=== PATIENT | male | born 2000 | race Two or more races ===

== ENCOUNTER 2022-07-14 00:20 | Emergency (ER) | payer OTHER ==
[~2022-07-14] VITALS: Ht 180.3 cm; Wt 108.9 kg
[2022-07-14] MEDS ORDERED: ZITHROMAX500 MG PO (00:33)
[2022-07-14] MEDS ORDERED: ORASEP SPRAY30 ML MM ×2 (03:52)
[2022-07-14] MEDS ORDERED: CEPHALEXIN500 MG PO (03:52)
[2022-07-14] MEDS ORDERED: MELOXICAM15 MG PO (03:52)
== END 2022-07-14 03:57 ==
LOC: ER 00:20
DX: J20.9 Acute bronchitis, unspecified (principal)

== ENCOUNTER 2023-08-15 11:55 | Emergency (ER) | payer OTHER ==
[~2023-08-15] VITALS: Ht 180.3 cm; Wt 108.9 kg
[~2023-08-15 11:55] MED LIST: CEPHALEXIN500 MG PO; MELOXICAM15 MG PO; ORASEP SPRAY30 ML MM; ZITHROMAX500 MG PO
[2023-08-15] MEDS ORDERED: CONCERTA27 MG (13:12)
[2023-08-15 16:00] LABS: HEMOGLOBIN 13.7 g/dL (13-16.00); MEAN CELL VOLUME 82.8 fL (80.0-100.00); MEAN CORPUSCULAR HEMOGLOBIN 29.8 pg (27.00-32.0); MEAN CORPUSCULAR HGB CONC 35.9 g/dl (32.0-36.0); PLATELET COUNT 261 K/uL (150-450); RED BLOOD COUNT 4.59 M/uL (4.00-6.00); RED CELL DISTRIBUTION WIDTH 14.1 % (11.5-14.5)
[2023-08-15 16:21] LABS: ALBUMIN 3.8 gm/dL (3.4-5.0); BILIRUBIN TOTAL 0.81 mg/dL (0.3-1.2); BILIRUBIN,CONJUGATED 0.21 mg/dL (0.0-0.2); BILIRUBIN,UNCONJUGATED 0.6 mg/dL (0.0-0.6); CALCIUM 9.1 mg/dL (8.5-10.1); CREATININE SERUM 0.94 mg/dL (0.70-1.30); GFR 100.35; POTASSIUM 3.67 mEq/L (3.5-5.1); TOTAL PROTEIN 8.7 gm/dL (6.4-8.2)
[2023-08-15 17:51] LABS: URINE APPEARANCE Clear; URINE BILIRRUBIN Negative (NEGATIVE); URINE BLOOD Negative; URINE COLOR Yellow; URINE GLUCOSE Negative (NEGATIVE); URINE LEUKOCYTE Negative; URINE NITRATE Negative; URINE PROTEIN Negative (NEGATIVE)
[2023-08-15 17:55] LABS: URINE BACTERIA 6.2 uL (0.0-1933)
[2023-08-15 17:59] LABS: URINE EPITHELIAL CELLS 0.7 uL (0.0-38.8); URINE RBC 1.2 uL (0.0-20.8); URINE WBC 0.9 uL (0.0-23.2)
[2023-08-15 18:14] LABS: COCAINE NEGATIVE (NEGATIVE); METHADONE NEGATIVE (NEGATIVE); OPIATES NEGATIVE (NEGATIVE); THC ( Cannabinoids) NEGATIVE (NEGATIVE)
[2023-08-15] MEDS ORDERED: TOPROL XL25 M1 PO (18:44)
== END 2023-08-15 19:21 | disposition home or self-care (01) ==
LOC: ER 11:55
PROVIDERS: General Practice
DX: R00.2 Palpitations (principal)